=== PATIENT | female | born 1960 | race Caucasian/White ===

== ENCOUNTER 2019-01-31 18:31 | Emergency (ER) | payer BC, OTHER ==
[~2019-01-31] VITALS: Ht 160 cm; Wt 79.4 kg
[2019-01-31] MEDS ORDERED: SODIUM CHLORIDE 0.9% 500 ML IV ONE (18:40)
[2019-01-31] MEDS ORDERED: LORazepam 2MG/ML-1ML VIAL IV ONE (18:45)
[2019-01-31 18:59] LABS: Basophils # (auto) 0.1 uL; Basophils % (auto) 0.7 % (0.0-2.0); Eosinophils # (auto) 0 uL; Eosinophils % (auto) 0.5 % (0.0-7.0); Hematocrit 40.5 % (36.0-46.0); Hemoglobin 13.8 g/dL (12.2-16.2); Lymphocytes # (auto) 1.2 uL; Lymphocytes % (auto) 13.4 % (10.0-50.0); Mean Corpuscular Hemoglobin 30.1 pg (28.0-32.0); Mean Corpuscular Hgb Conc. 33.9 g/dL (32.0-36.0); Mean Corpuscular Volume 88.8 fL (80.0-100.0); Monocytes # (auto) 0.4 uL; Neutrophils # (auto) 6.9 uL; Neutrophils % (auto) 80.4 % (37.0-80.0); Platelet Count (auto) 295 10^3/uL (140-450); Red Blood Cells 4.56 10^6/uL (4.0-5.20); Red Cell Distribution Width 13.3 % (11.8-14.3); White Blood Cell 8.6 10^3/uL (4.4-10.8)
[2019-01-31 19:15] LABS: Albumin 4.1 g/dL (3.4-5.0); Anion Gap 5 (5-15); Blood Urea Nitrogen 16 mg/dL (7-18); Calcium 8.8 mg/dL (8.5-10.1); Carbon Dioxide 26 mmol/L (21-32); Chloride 109 mmol/L (98-107); Glucose 116 mg/dL (74-106); Magnesium 2.2 mg/dL (1.6-2.6); Potassium 4.4 mmol/L (3.5-5.1); Sodium 140 mmol/L (136-145)
[2019-01-31 19:20] LABS: Alanine Aminotransferase 22 U/L (13-56); Alkaline Phosphatase 66 U/L (45-117); Aspartate Aminotransferase 12 U/L (15-37); Bilirubin, Total 0.5 mg/dL (0.2-1.0); GFR African American 89 mL/min; GFR Non-African American 74 mL/min; Total Protein 7.4 g/dL (6.4-8.2)
[2019-01-31 19:25] LABS: INR 0.99 (0.9-1.15); Partial Thromboplastin Time 25.4 sec (23.64-32.05)
[2019-01-31 21:15] VITALS: BP 158/88
== END 2019-01-31 21:16 | disposition home or self-care (01) ==
LOC: ER 18:35
DX: H81.10 Benign paroxysmal vertigo, unspecified ear (principal); Z90.49 Acquired absence of other specified parts of digestive tract
CPT/HCPCS: 36415; 70450; 71045; 80053; 83735; 84484; 85025; 85610; 85730; 93005; 94761; 96361; 96374; 99284; J2060; J7030